=== PATIENT | male | born 1975 | race Caucasian/White ===

== ENCOUNTER 2022-12-05 23:18 | Emergency (ER) | payer MEDICARE, SELFPAY ==
[2022-12-05 23:32] VITALS: BP 159/77; PULSE 76; RESP 20; TEMP 36.9; O2SAT 99
[2022-12-06] MEDS: HALOPERIDOL LACTATE 5 MG/ML VIAL IM (00:11)
[2022-12-06] MEDS: LORazepam INJ (*CRX) 2 MG/ML VIAL IV PUSH (00:11)
[2022-12-06 00:25] LABS: Basophils Absolute Auto 0.1 K/mm3 (0.0-0.1); Eosinophils Absolute Auto 0.2 K/mm3 (0-0.3); Eosinophils Percent Auto 1.5 % (0-4.4); Hematocrit 40.9 % (42.0-52.0); Hemoglobin 13.6 g/dL (14.0-18.0); Immature Granulocyte Absolute 0.05 K/mm3 (0.00-0.031); Immature Granulocyte Percent A 0.5 % (0-0.5); Lymphocytes Absolute Auto 1.23 K/mm3 (0.9-3.2); Lymphocytes Percent Auto 11.6 % (18.3-44.2); Mean Corpuscular HGB Conc 33.3 g/dl (32-36); Mean Corpuscular Hemoglobin 30.2 pg (26-34); Mean Corpuscular Volume 90.9 fl (80-100); Mean Platelet Volume 7.9 fl (7.4-10.4); Monocytes Absolute Auto 1.1 K/mm3 (0.1-0.6); Monocytes Percent Auto 9.9 % (2.6-8.5); Neutrophils Percent Auto 75.5 % (45.5-73.1); Platelet Count Result 322 k/mm3 (150-375); Red Cell Distribution Width 13.7 % (11.5-14.5); White Blood Count 10.6 K/mm3 (4.5-10.0)
--- NOTE | 2022-12-06 00:33 | ED.PSYCH ---
HPI - Psych General Chief Complaint: Psychiatric Symptoms <Orlando Adan MD - Last Filed: 12/06/22 08:25> Stated Complaint: psych consult <Orlando Adan MD - Last Filed: 12/06/22 08:25> Time Seen by Provider: 12/06/22 00:00 <Orlando Adan MD - Last Filed: 12/06/22 08:25> History of Present Illness HPI Narrative: This is a 47-year-old male with reported history of schizophrenia bipolar disorder, brought in by EMS for delusions and homicidal ideations. The patient states he is [place] and that he is going to murder everybody . He denies suicidal ideations. He also states he is going to kill all members of the [employer], [employer], and [place]. <Orlando Adan MD - Last Filed: 12/06/22 08:25> Related Data Allergies/Adverse Reactions: Allergies Allergy/AdvReac Type Severity Reaction Status Date / Time cefazolin Allergy Hives Verified 12/05/22 23:19 <Orlando Adan MD - Last Filed: 12/06/22 08:25> Review of Systems Review of Systems: CONSTITUTIONAL: Denies fever, chills, or sweats. CARDIOVASCULAR: Denies chest pain, palpitations, or edema. RESPIRATORY: Denies cough or dyspnea. GASTROINTESTINAL: Denies abdominal pain, nausea, vomiting, or diarrhea. GENITOURINARY: Denies dysuria or hematuria. SKIN: Denies rash or itching. MUSCULOSKELETAL: Denies back pain, joint pain, or myalgia. NEUROLOGIC: Denies headache, numbness, dizziness, or weakness. PSYCHIATRIC: Homicidal ideations, delusions, denies suicidal ideations denies anxiety or depression. <Orlando Adan MD - Last Filed: 12/06/22 08:25> PMFSH Social History Social History: Social History (Updated 12/06/22 @ 00:36 by Orlando Adan MD) Smoking status: Former smoker Alcohol intake: current Drinks per week: 14 Substance use: current Substance use type: marijuana Current Housing: I Do Not Have Housing <Orlando Adan MD - Last Filed: 12/06/22 08:25> Exam Narrative: GENERAL: Well-developed, well-nourished, and in no acute distress. HEAD: Normocephalic, atraumatic. EYES: PERRLA and EOMI. ENT: Nares clear, no rhinorrhea or epistaxis. Mucous membranes dry. Oropharynx without tonsillar hypertrophy exudate or other lesions. CHEST: Clear to auscultation. No respiratory distress. No wheezes rales or rhonchi HEART: Regular rate and rhythm. No murmur heard. Normal peripheral pulses. ABDOMEN: Soft, nontender, nondistended, normal active bowel sounds. EXTREMITIES: Normal range of motion. No edema. SKIN: Warm, dry, no rash. NEURO: No focal deficits. Alert and oriented x3. PSYCH: Appears somewhat manic, flattened affect, poor eye contact, active delusions and homicidal <Orlando Adan MD - Last Filed: 12/06/22 08:25> Course Course Emergency Course: 00:05 - Patient walked from his room and announced that he would kill everyone. Will sedate with Haldol and Ativan IM. 02:00 - The patient is medically cleared for psychiatric admission. 04:30 - Crisis counselors at bedside but are unable to wake the patient for adequate history. They will reattempt later. 07:00 - Patient signed out to oncoming ED physician, Dr. Miles pending crisis evaluation. <Orlando Adan MD - Last Filed: 12/06/22 08:25> Reevaluation(s) Reevaluation #1: Patient has been accepted to [facility] by Dr. Gonsales. Patient was given potassium 40 meq for supplementation. I reviewed UA And no need for antibiotics. negative wbc , negative LE, negative nitrates <Elizabeth Miles MD - Last Filed: 12/06/22 15:33> Date: 12/06/22 <Elizabeth Miles MD - Last Filed: 12/06/22 15:33> Time: 15:31 <Elizabeth Miles MD - Last Filed: 12/06/22 15:33> Vital Signs Vital signs: Vital Signs Temperature 98.4 F 12/05/22 23:32 Pulse Rate 76 12/05/22 23:32 Respiratory Rate 20 12/05/22 23:32 Blood Pressure 159/77 H 12/05/22 23:32 Pulse Oximetry 99 12/05/22 23:32 Oxygen Delivery Room Air
[2022-12-06 00:34] LABS: Ethanol < 10 mg/dL (<10)
[2022-12-06 00:35] LABS: Alanine Aminotransferase 34 U/L (6-50); Albumin Level 4.5 g/dL (3.5-5.1); Alkaline Phosphatase 47 U/L (38-126); Anion Gap 8 mmol/L (8-16); Aspartate Amino Transferase 51 U/L (17-59); Bilirubin,Total 0.8 mg/dL (0.2-1.3); Blood Urea Nitrogen 18 mg/dL (9-20); Calcium 8.9 mg/dL (8.4-10.2); Carbon Dioxide 24 mmol/L (22-30); Chloride 105 mmol/L (98-107); Estimated CRCL calculation 101 ml/min; Estimated Glomerular Filt Rate > 60; Glucose 134 mg/dL (65-110); Potassium 3.2 mmol/L (3.4-5.0); Sodium 137 mmol/L (137-145)
[2022-12-06 00:49] LABS: Amphetamine Screen Urine Negative (Negative); Barbiturate Screen Urine Negative (Negative); Benzodiazepines Screen Urine Negative (Negative); Cannabinoid Screen Urine Positive (Negative); Cocaine Screen Urine Negative (Negative); Methadone Screen Urine Negative (Negative); Opiate Screen Urine Negative (Negative); Phencyclidine Screen Urine Negative (Negative)
[2022-12-06 00:58] LABS: Acetaminophen < 10 ug/mL (10-30); Salicylate < 1.0 mg/dL (2-20)
[2022-12-06 01:01] LABS: Influenza A QL RT-PCR Negative (Negative); Influenza B QL RT-PCR Negative (Negative); RSV RNA, RT-PCR Negative (Negative); SARS-CoV-2 RNA PCR Negative
[2022-12-06 01:03] LABS: Appearance Urine Clear (Clear); Bacteria Urine None Seen /hpf; Bilirubin Urine Negative (Negative); Blood Urine Negative (Negative); Color Urine Yellow (Yellow); Glucose Urine UA 2+ mg/dL (Negative); Ketones Urine Trace mg/dL (Negative); Leukocyte Esterase Ur Negative LEU/UL (Negative); Nitrate Urine Negative (Negative); Non Pathogenic Casts 0-2; Protein Urine Trace mg/dL (Negative); Specific Grav Ur 1.027 (1.001-1.035); Squamous Epithelial Cell Urine None seen /hpf (Few); WBC Urine 0-5 /hpf
[2022-12-06 01:08] LABS: Add Urine Microscopic? YES
--- NOTE | 2022-12-06 02:18 | PC.NURSE ---
Called crisis and spoke with Eunice who states she will be out t0 see patient
--- NOTE | 2022-12-06 06:29 | PC.NURSE ---
Pt moved from room 6 to room 14 via sitter. Pt asleep at this time, breathing even and unlabored. Report received from prior RN. Crisis here around 0500 and pt unable to arouse enough to speak with them. Crisis to come evaluate when pt is more alert.
[2022-12-06 07:30] VITALS: BP 122/86; PULSE 60; RESP 16; TEMP 36.6; O2SAT 98
--- NOTE | 2022-12-06 11:10 | PC.NURSE ---
Oni here for evaluation of pt. Juaquin recommends admission at this time.
--- NOTE | 2022-12-06 13:30 | PC.NURSE ---
JACKIE CALLED AND SAID PT IS ACCEPTED BY DR AYON. THEY ARE REQUESTING THAT WE SUPPLEMENT HIS POTASSIUM AND THAT WE LOOK AT HIS URINE TO SEE IF HE NEEDS AN ANTIBIOTIC. DR UNGER MADE AWARE AND WILL WRITE FOR ONE TIME DOSE OF ORAL POTASSIUM. NO ANTIBIOTICS OR FURTHER POTASSIUM SUPPLEMENTATION NEEDED.
[2022-12-06] MEDS: POTASSIUM CHLORIDE 20 MEQ TABLET 40 MEQ PO (13:40)
[2022-12-06 14:32] VITALS: BP 138/85; PULSE 70; RESP 16; TEMP 36.5; O2SAT 100
== END 2022-12-06 15:40 ==
PROVIDERS: Emergency Provider Preventive Medicine Aerospace Medicine; PCP Family Medicine
DX: R45.850 Homicidal ideations (principal); F22 Delusional disorders; F12.90 Cannabis use, unspecified, uncomplicated; Z87.891 Personal history of nicotine dependence; Z20.822 Contact with and (suspected) exposure to COVID-19
CPT/HCPCS: 36415; 80053; 80307; 81001; 84443; 85025; 87637; 96374; 99285; A9270; J1630; J2060